=== PATIENT | female | born 1955 | race Caucasian/White ===

== ENCOUNTER 2021-12-26 19:05 | Emergency (ER) | payer OTHER ==
[~2021-12-26] VITALS: Ht 167.6 cm; Wt 81.8 kg
[2021-12-26] MEDS ORDERED: ringers solution, lactated 1000ml IV soln IV ONE (21:00)
[2021-12-26 21:38] LABS: ALANINE AMINOTRANSFERASE 14 U/L (12-78); ALBUMIN 2.1 G/DL (3.4-5.0); ALBUMIN/GLOBULIN RATIO 0.5 (1.1-1.5); ALKALINE PHOSPHATASE 187 IU/L (46-116); ANION GAP 5 (8-16); ASPARTATE AMINO TRANSFERASE 24 U/L (10-37); BILIRUBIN,TOTAL 0.6 MG/DL (0.1-1.0); BLOOD UREA NITROGEN 25 MG/DL (7-18); BUN/CREATININE RATIO 30.1 (6.6-38.0); CALCIUM 10.1 MG/DL (8.5-10.1); CHLORIDE 105 MMOL/L (99-107); CREATININE 0.83 MG/DL (0.40-0.90); GLUCOSE 122 MG/DL (70-104); POTASSIUM 3.6 MMOL/L (3.5-5.1); SODIUM 138 MMOL/L (135-145); TOTAL PROTEIN 6.1 G/DL (6.4-8.2); eGFR 69 ML/MIN
[2021-12-26 21:52] LABS: BASOPHILS # (AUTO) 0.1 X10'3 (0-0.2); BASOPHILS % (AUTO) 1.2 % (0-1); EOSINOPHILS # (AUTO) 0.2 X10'3 (0-0.9); EOSINOPHILS % (AUTO) 1.6 % (0-6); HEMATOCRIT 28.9 % (35.0-45.0); HEMOGLOBIN 9.4 g/dl (12.0-16.0); LYMPHOCYTES # (AUTO) 0.6 X10'3 (1.1-4.8); LYMPHOCYTES % (AUTO) 6.5 % (21-51); MEAN CORPUSCULAR HEMOGLOBIN 27.9 PG (27.0-31.0); MEAN CORPUSCULAR HGB CONC 32.6 g/dL (33.0-36.5); MEAN CORPUSCULAR VOLUME 85.4 FL (78-98); MEAN PLATELET VOLUME 8.5 FL (7.4-10.4); MONOCYTES # (AUTO) 0.9 X10'3 (0-0.9); MONOCYTES % (AUTO) 9.2 % (2-12); NEUTROPHILS # (AUTO) 7.6 X10'3 (1.8-7.7); NEUTROPHILS % (AUTO) 81.5 % (42-75); PLATELET COUNT 340 X10'3 (140-440); RED BLOOD COUNT 3.38 X10'6 (4.20-5.60); RED CELL DISTRIBUTION WIDTH 16.5 % (11.5-14.5); WHITE BLOOD COUNT 9.4 X10'3 (4.5-11.0)
[2021-12-26] MEDS ORDERED: ketorolac trometh. 30mg/ml inj. IV ONE (22:10)
[2021-12-26 23:08] LABS: CLARITY,URINE CLOUDY (Clear); COLOR,URINE YELLOW (Yellow); GLUCOSE, URINE NEGATIVE (Neg); KETONES,URINE NEGATIVE (Neg); LEUKOCYTE ESTERASE ,URINE LARGE (Neg); NITRITES, URINE POSITIVE (Neg); OCCULT BLOOD,URINE MODERATE (Neg); PH,URINE 6.5 (4.8-8.0); PROTEIN,URINE 30 mg/dl (Neg); UA COLLECTION TYPE FOLEY CATH
[2021-12-26 23:19] LABS: BACTERIA,URINE 4+ /HPF (Neg); WBC,URINE TNTC /HPF (0-4)
[2021-12-26 23:21] LABS: CAL OXALATE CRYSTALS 1+ /HPF (NEGATIVE); MUCUS STRANDS NONE SEEN /LPF (Neg); SQUAMOUS EPITHELIAL CELL,UR NONE SEEN /LPF (FEW)
[2021-12-26] MEDS ORDERED: SULF1TAB49 PO (23:28)
[2021-12-26] MEDS ORDERED: sulfamethox/trimethoprim inj. 15 ML in dextrose 5% water 500ml 485 ML IV ONE (23:30)
[2021-12-26] MEDS ORDERED: normal saline 1000ml 1,000 ML IV ONE (23:30)
[2021-12-26] MEDS ORDERED: WATER IV ONE (23:51)
[2021-12-26] MEDS ORDERED: SULFAMETHOX IV ONE (23:51)
[2021-12-26] MEDS ORDERED: TRIMETHOPRIM IV ONE (23:51)
[2021-12-26] MEDS ORDERED: DEXTROSE IV ONE (23:51)
[2021-12-27 02:00] VITALS: BP 97/51
[2021-12-29] MEDS ORDERED: LIDO5CRE7 TOP (18:51)
[2021-12-29] MEDS ORDERED: NITR100C6 PO (18:53)
[2021-12-29] MEDS ORDERED: RISP1TAB13 PO (18:59)
[2021-12-29] MEDS ORDERED: QUET25TA PO (19:00)
[2021-12-29] MEDS ORDERED: ZINC220C7 PO (19:02)
[2021-12-29] MEDS ORDERED: ASCO-134 PO (19:03)
[2021-12-29] MEDS ORDERED: COLL30OI TOP (19:05)
[2021-12-29] MEDS ORDERED: LORA-269 PO (19:06)
[2021-12-29] MEDS ORDERED: LORA-268 PO (19:07)
[2021-12-29] MEDS ORDERED: QUET50TA PO (19:08)
[2021-12-29] MEDS ORDERED: QUET-1 PO (19:09)
[2021-12-29] MEDS ORDERED: POLY17PO10 PO (19:09)
[2021-12-29] MEDS ORDERED: LACT1CAP26 PO (19:10)
[2021-12-29] MEDS ORDERED: OMEP20CA16 PO (19:11)
[2021-12-29] MEDS ORDERED: GABA-530 PO (19:11)
[2021-12-29] MEDS ORDERED: ROSU40TA PO (19:12)
[2021-12-29] MEDS ORDERED: MIRT7.5T11 PO (19:12)
[2021-12-29] MEDS ORDERED: ACET325T57 PO (19:13)
== END 2021-12-27 04:54 ==
LOC: ER 19:05
DX: N39.0 Urinary tract infection, site not specified (principal); Z20.822 Contact with and (suspected) exposure to COVID-19; R50.9 Fever, unspecified; I25.10 Atherosclerotic heart disease of native coronary artery without angina pectoris; E78.00 Pure hypercholesterolemia, unspecified; I10 Essential (primary) hypertension; F41.9 Anxiety disorder, unspecified; F31.9 Bipolar disorder, unspecified; F20.9 Schizophrenia, unspecified; Z87.440 Personal history of urinary (tract) infections; Z88.5 Allergy status to narcotic agent; Z88.8 Allergy status to other drugs, medicaments and biological substances; Z79.2 Long term (current) use of antibiotics
CPT/HCPCS: 36415; 71045; 80053; 81001; 83605; 84145; 85025; 87040; 87077; 87088; 87186; 87635; 96361; 96365; 96366; 96375; 99285; C9803; J1885; J3490; J7030; J7060; J7120

== ENCOUNTER 2022-03-15 10:30 | Outpatient (CLI) | payer OTHER ==
[~2022-03-15 10:30] MED LIST: ACET-1008 GT; APIX5TAB3 GT; ASCO-134 PEG; ASPI-10 GT; COLL30OI TOP; CYCL-1 PO; DOCU100C40 GT; FAMO20TA8 PO; HYDR-3965 GT; LACT1CAP26 GT; LORA-269 GT; MAGN400O6 PO; NUTR1PAC9 PO; NYSPWD TP; ROSU40TA GT; SODI473S20 TP; ZINC220C7 GT
== END 2022-03-15 23:59 | disposition home or self-care (01) ==
LOC: RAD 10:30
PROVIDERS: ATTEND Emergency Medicine
DX: L89.154 Pressure ulcer of sacral region, stage 4 (principal); M40.46 Postural lordosis, lumbar region; M48.061 Spinal stenosis, lumbar region without neurogenic claudication; M51.27 Other intervertebral disc displacement, lumbosacral region
CPT/HCPCS: 72148

== ENCOUNTER 2022-03-23 11:07 | Day surgery (SDC) | payer OTHER ==
[~2022-03-23] VITALS: Ht 152.4 cm; Wt 71.0 kg
[2022-03-23] VITALS (7 sets, daily range): BP systolic 134–244; BP diastolic 77–127
--- NOTE | 2022-03-23 11:00 | NUR ---
PT PREPPED FOR SURGERY, DIFFICULT IV START, PTS POWER OF SIDE SAWYER AT BEDSIDE, CONSENTS SIGNED, H & P UPDATED BY DR PRAKASH
[~2022-03-23 11:07] MED LIST changes: +ceFOXitin 2GM-NS 100mL ADDvant 100 ML IV ONE; +famotidine 20mg tablet PO ONE; +ringers solution, lacted 1,000 ML IV SCH
[2022-03-23 12:21] LABS: BASOPHILS % (AUTO) 0.4 % (0-1); EOSINOPHILS # (AUTO) 0.1 X10'3 (0-0.9); EOSINOPHILS % (AUTO) 1.1 % (0-6); LYMPHOCYTES # (AUTO) 0.8 X10'3 (1.1-4.8); LYMPHOCYTES % (AUTO) 10.2 % (21-51); MEAN CORPUSCULAR HEMOGLOBIN 27.2 PG (27.0-31.0); MEAN CORPUSCULAR HGB CONC 31.9 g/dL (33.0-36.5); MEAN CORPUSCULAR VOLUME 85.5 FL (78-98); MEAN PLATELET VOLUME 8.3 FL (7.4-10.4); MONOCYTES # (AUTO) 0.5 X10'3 (0-0.9); MONOCYTES % (AUTO) 6.4 % (2-12); NEUTROPHILS # (AUTO) 6.5 X10'3 (1.8-7.7); NEUTROPHILS % (AUTO) 81.9 % (42-75); PRE OP HEMATOCRIT 26.6 % (35.0-45.0); PRE OP PLATELET COUNT 337 X10'3 (140-440); RED BLOOD COUNT 3.11 X10'6 (4.20-5.60)
[2022-03-23 12:26] LABS: PRE OP HEMOGLOBIN 8.5 g/dL (12.0-16.0)
[2022-03-23] MEDS ORDERED: LINE600I8 IV (12:46)
[2022-03-23] MEDS ORDERED: MICO85PO13 (12:51)
[2022-03-23] MEDS ORDERED: MULT9LIQ PO (13:12)
[2022-03-23] MEDS ORDERED: POLY17PO10 PO (13:16)
[2022-03-23] MEDS ORDERED: ATOR-2 PO (13:22)
[2022-03-23] MEDS ORDERED: sevoflurane 250ml liquid IH ONE (14:22)
[2022-03-23] MEDS ORDERED: morphine 2 MG/ML inj. syringe IV PRN (14:25)
[2022-03-23] MEDS ORDERED: proCHLORperazine 10 MG/2 ml inj IV PRN (14:25)
[2022-03-23] MEDS ORDERED: hydrALAZINE 20mg/ml inj. IV PRN (14:25)
[2022-03-23] MEDS ORDERED: morphine 4 MG/ML inj SYRINge IV PRN (14:25)
[2022-03-23] MEDS ORDERED: meperidine/PF 25mg/ml syringe IV PRN ×3 (14:25)
[2022-03-23] MEDS ORDERED: acetaminophen 1,000mg/100ml IV 100 ML IV PRN (14:25)
[2022-03-23] MEDS ORDERED: ondansetron/PF 4mg/2ml inj IV PRN (14:25)
[2022-03-23] MEDS ORDERED: ringers solution, lacted 1,000 ML IV SCH (14:25)
[2022-03-23] MEDS ORDERED: labetalol 20mg/4ml (5mg/ml) syringe IV PRN (14:25)
[2022-03-23] MEDS ORDERED: fentaNYL/PF 50MCG/1 ML 2ML syringe ONE (14:28)
[2022-03-23] MEDS ORDERED: midazolam 1 mg/ML 2ml injection ONE (14:30)
[2022-03-23] MEDS ORDERED: fentaNYL/PF 50MCG/1 ML 2ML syringe IV PRN ×2 (14:45)
[2022-03-23 14:51] LABS: PRE OP PROTIME 10.7 SECONDS (9.0-12.0)
[2022-03-23] MEDS ORDERED: etomidate 2mg/ml inj. ONE (14:53)
[2022-03-23] MEDS ORDERED: rocuronium 10mg/ml inj IV ONE ×3 (14:53→14:54)
[2022-03-23] MEDS ORDERED: ondansetron/PF 4mg/2ml inj ONE (14:55)
[2022-03-23] MEDS ORDERED: dexamethasone sod phosphate 4mg/ml inj. ONE (14:55)
[2022-03-23 15:06] LABS: ALBUMIN 2.1 G/DL (3.4-5.0); BLOOD UREA NITROGEN 16 MG/DL (7-18); CALCIUM 10.5 MG/DL (8.5-10.1); CHLORIDE 104 MMOL/L (99-107); CREATININE 0.64 MG/DL (0.40-0.90); PRE OP ANION GAP 10 (8-16); PRE OP GLUCOSE 105 MG/DL (70-104); PRE OP SODIUM 140 MMOL/L (135-145); TOTAL CARBON DIOXIDE 26.2 MMOL/L (24-32); eGFR > 90 ML/MIN
[2022-03-23] MEDS ORDERED: neostigmine methylsulfate 1 MG/ML 10ml vial ONE (15:22)
[2022-03-23] MEDS ORDERED: glycopyrrolate 0.2mg/ml inj ONE (15:22)
--- NOTE | 2022-03-23 15:45 | NUR ---
Received from OR via , accompanied by Anesthesiologist OR NURSE and report given by Anesthesiolgist. PT IS FROM [facility], ARRIVED TODAY AND WILL RETURN THERE. PT HAS A RECTAL TUBE, HOLGUIN AND PEG TUBE IN PLACE. PT IS SCREAMING/CRYING AND PAIN MED IS GIVEN. Addendum: 03/23/22 at 1656 by Angelica Madrigal RN Amended: Links added.
--- NOTE | 2022-03-23 16:45 | NUR ---
PT WAS IN UNIT FOR ONE HOUR. TRANSPORTATION/AMBULANCE ARRIVED TO BRING PT BACK TO [facility]. PT LEFT WITH 22G TO WRIST. HOLGUIN AND RECTAL TUBE IN PLACE. COLSOTOMY WITH PINK CIERA STOMA. Addendum: 03/23/22 at 1712 by Angelica Madrigal RN Amended: Links added.
== END 2022-03-23 16:45 | disposition home or self-care (01) ==
LOC: PAS 11:07
PROVIDERS: ATTEND Surgery
DX: L89.159 Pressure ulcer of sacral region, unspecified stage (principal); Z88.5 Allergy status to narcotic agent; Z79.899 Other long term (current) drug therapy; Z79.01 Long term (current) use of anticoagulants; I25.10 Atherosclerotic heart disease of native coronary artery without angina pectoris; I11.0 Hypertensive heart disease with heart failure; I50.9 Heart failure, unspecified; E78.5 Hyperlipidemia, unspecified; Z86.73 Personal history of transient ischemic attack (TIA), and cerebral infarction without residual deficits; Z88.6 Allergy status to analgesic agent; Z88.8 Allergy status to other drugs, medicaments and biological substances
CPT/HCPCS: 36415; 44320; 80048; 82948; 85025; 85610; 86885; 86900; 86901; 87081; J0694; J1100; J2250; J2405; J2710; J3010; J3490; J7030; J7120; Z7506; Z7508; Z7512; A4421; A4618; A7000